=== PATIENT | male | born 1960 | race Caucasian/White ===

== ENCOUNTER 2019-06-15 04:55 | Inpatient (IN) ==
--- NOTE | 2019-05-22 15:15 | PAT Medication Instructions ---
Medication Instructions Date of Service May 22, 2019 Home Medications apple cider vinegar 2,000 mg PO BID STOP taking 2 weeks before surgery (or as soon as possible if surgery is within 2 weeks) apple cider vinegar 2,000 mg PO BID Other Notes If you have any questions please call us at [phone] or [phone] or [phone] or [phone]
--- NOTE | 2019-05-23 14:07 | Anesthesiology Consultation ---
Date of Service May 23, 2019 Assessment & Plan (1) Encounter for pre-operative examination: Chart Review Chart Review: Pending: Refer to Additional Notes / Consult section (pending preop testing (labs, EKG, CXR)) and Patient seen in Pre Admission Testing Teaching & Discussion Pre-Anesthesia Teaching/Discussion Notes: Instructed NPO after midnight before surgery,except medications with 15 cc of water. Medication instructions prov ided according to the PAT guidelines. History Surgery Operation Date: 06/15/19 13:00 Proposed Procedures p Right Anterior Total Hip Arthroplasty - Mil Martin DO Height/Weight Height: 5 ft 10 in Weight: 109.3 kg Allergies Allergy/AdvReac Type Severity Reaction Status Date / Time No Known Allergies Allergy Verified 05/16/19 14:58 Medications Home Medications Medication Instructions Recorded Confirmed Last Taken apple cider vinegar 2,000 mg PO BID 05/16/19 05/16/19 Unknown Past Medical History Medical History Obesity Arthritis Exercise / Class Metabolic Activity III < 4 Walking/Shop/Light housework Past Family History Family History Father Family hx of colon cancer Past Surgical History Surgical History History of arthroscopy RIGHT KNEE History of colonoscopy X 3 Past Anesthesia History No Hx of Anesthesia Complications and No Family Hx of Anesthesia Complications History of PONV No Hx of PONV and No Hx of Motion Sickness Social History Smoking Status: Never smoker Do You Dip or Chew Tobacco: Yes (occasional- advised NPO) Hx Alcohol Use: Yes Alcohol type: wine alcohol intake frequency: 0-2 drinks per day (1 glass wine/day) Hx Substance Use: No Review of Systems Patient denies chest pain, shortness of breath, dyspnea on exertion, reflux, cough, wheezing, palpitations. Physical Exam Vital Signs VITALS BP 151/77 (per patient, BP typically in the 120's/70-80's range) P 71 TEMP 98.4 SP02 96%RA RESP 18 PHYSICAL Full neck and c-spine range of motion. Full TMJ range of motion. TMD 3.5 finger breaths Mallampati Score 3 Dentition: missing sides/molars Lungs: clear throughout to auscultation Cardiac: regular rate and rhythm, no murmurs noted Spine: normal Carotid arteries: negative bruit Extremities: no edema
--- NOTE | 2019-05-23 15:23 | XRay Report ---
XR chest Pre-admission PA/Lat CLINICAL HISTORY: PAT preoperative evaluation COMPARISON STUDY: No previous studies for comparison. FINDINGS: Moderate cardiomegaly. Diaphragms are smooth. Lungs are considered clear. IMPRESSION: Moderate cardiomegaly. Otherwise negative study. The above report was generated using voice recognition software. It may contain grammatical, syntax or spelling errors. Electronically signed by: Cristóbal Bourgeois M.D. 05/23/2019 3:21 PM
[2019-05-23 15:29] LABS: Basophils # (auto) 0.03 K/uL (0-0.2); Basophils % (auto) 0.4 %; Eosinophils # (auto) 0.11 K/uL (0-0.5); Eosinophils % (auto) 1.3 %; Hematocrit (blood only) 42.4 % (42-52); Hemoglobin 14.7 g/dL (14.0-18.0); Immature Granulocytes # (auto) 0.25 K/uL (0.00-0.02); Lymphocytes # (auto) 1.02 K/uL (1.2-3.4); Lymphocytes % (auto) 12.2 %; Mean Corpuscular Hemoglobin 30.6 pg (25-34); Mean Corpuscular Hgb Conc 34.7 g/dL (32-36); Mean Corpuscular Volume 88.1 fL (80-100); Mean Platelet Volume 9.8 fL (7.4-10.4); Monocytes # (auto) 0.74 K/uL (0.11-0.59); Monocytes % (auto) 8.9 %; Neutrophils # (auto) 6.18 K/uL (1.4-6.5); Neutrophils % (auto) 74.2 %; Platelet Count 185 K/uL (130-400); RDW Coefficient of Variation 13.9 % (11.5-14.5); RDW Standard Deviation 44.3 fL (36.4-46.3); Red Blood Count 4.81 M/uL (4.7-6.1); White Blood Count 8.33 K/uL (4.8-10.8)
[2019-05-23 15:36] LABS: Est GFR (African American) 75.7; Est GFR (Non-African American) 65.3; Potassium 3.9 mmol/L (3.5-5.1)
[2019-05-23 15:41] LABS: Partial Thromboplastin Time 26.2 Seconds (21.0-31.0); Prothrombin Time 9.8 Seconds (9.0-12.0)
[2019-06-15] MEDS ORDERED: TRANEXAMIC ACID 1,000 MG **IV Pre-op IV SCH (06:00)
[2019-06-15] MEDS ORDERED: FAMOTIDINE 20 MG TAB PO SCH (06:00)
[2019-06-15] MEDS ORDERED: LR 500ML BOLUS IV SCH (06:00)
[2019-06-15] MEDS ORDERED: GABAPENTIN 600 MG DOSE PO SCH (06:00)
[2019-06-15] MEDS ORDERED: CEFAZOLIN 2000MG 2,000 MG/15 ML SYR IV SCH (06:00)
[2019-06-15] MEDS ORDERED: LACTATED RINGER'S 1,000 ML IV SCH (06:00)
[2019-06-15] MEDS ORDERED: ROPIVACAINE 0.5% HCL/PF 150 MG, BUPIVACAINE 0.5% MPF 30 ML, EPINEPHrine 30MG/30ML (OR U... INSTIL SCH (06:00)
[2019-06-15] MEDS ORDERED: ACETAMINOPHEN 500 MG TAB PO SCH (06:00)
[2019-06-15] MEDS ORDERED: BUPIVACAINE 0.5 % 5 MG/1 ML PF 10ML VIAL ONE (06:22)
--- NOTE | 2019-06-15 06:25 | History & Physical Report ---
Date of Service June 15, 2019 Assessment & Plan (1) Osteoarthritis of right hip: We will proceed with a right anterior total hip arthroplasty. Postoperatively he will be started on aspirin for DVT prophylaxis. He will be kept overnight in the hospital for postoperative medical management. He plans [facility] upon discharge. Present on Admission?: Yes History of Present Illness Chief Complaint: Primary osteoarthritis of the right hip Primary Care Provider: NO PCP Lei is a pleasant 58-year-old male who is been dealing with chronic increasing right hip and groin pain. X-rays and clinical examination have been diagnostic for primary osteoarthritis of the right hip. After failing conservative treatment, he has elected to proceed with a right anterior total hip arthroplasty. Allergies Allergy/AdvReac Type Severity Reaction Status Date / Time No Known Allergies Allergy Verified 06/15/19 05:46 Home Medications Home Medications Medication Instructions Recorded Confirmed Type apple cider vinegar 2,000 mg PO BID 05/16/19 06/15/19 History Past Med/Surg History Medical History Obesity Arthritis Surgical History History of arthroscopy RIGHT KNEE History of colonoscopy X 3 Family History Father Family hx of colon cancer Social History Preferred Language: Malay Communication Ability: Effective P D Driver Required: No Beliefs That Will Affect Care: None Current Living Situation: Spouse and Family Other Information That Helps Us Care for You: No Feels Safe at Home: Yes Safety Concerns: Feels Safe At This Time Smoking Status: Never smoker Do You Dip or Chew Tobacco: Yes (occasional- advised NPO) ; Second Hand Exposure: No ; Hx Alcohol Use: Yes Alcohol type: wine Hx Substance Use: No Review of Systems All systems reviewed & are unremarkable except as noted in HPI & below Physical Exam Constitutional: WD/WN, vitals as above Eyes: PERRL, conjunctivae normal, anicteric sclerae ENMT: external ear and nose normal, oropharynx normal Neck: trachea midline, no thyromegaly Respiratory: normal respiratory effort Cardiovascular: RRR, no murmur, no edema Gastrointestinal (Abdomen): normal bowel sounds, soft, nontender, no hepatosplenomegaly Musculoskeletal: Physical examination of the right hip reveals decreased range of motion with flexion, internal and external rotation. There is significant groin pain with forced internal rotation of the hip his leg lengths are essentially equal. Psychiatric: A+Ox3, euthymic affect Results & Data Vital Signs (Past 12 Hours) Vital Signs Temp Pulse Resp BP Pulse Ox 06/15/19 05:47 36.8 C 71 18 181/96 H 98 Diagnostic Findings Radiographs of the right hip and pelvis demonstrate advanced osteoarthritis with joint space narrowing osteophyte formation and [id number] articulation.
[2019-06-15] MEDS ORDERED: TRANEXAMIC ACID 1,000 MG **IV Intra-op IV SCH (06:30)
[2019-06-15] MEDS ORDERED: ONDANSETRON INJ 2 MG/ML 2 ML VIAL IV PRN ×2 (06:36→10:17)
[2019-06-15] MEDS ORDERED: ATROPINE SULFATE 0.1 MG/ML 10ML SYR IV PRN (06:36)
[2019-06-15] MEDS ORDERED: ePHEDrine sulfate 50 MG/ML AMP IV PRN (06:36)
[2019-06-15] MEDS ORDERED: fentaNYL citrate 100 MCG/2 ML VIAL IV PRN (06:36)
[2019-06-15] MEDS ORDERED: MIDAZOLAM HCL 1 MG/ML 2ML VIAL ONE ×2 (06:37)
[2019-06-15] MEDS ORDERED: fentaNYL citrate 100 MCG/2 ML VIAL ONE (06:38)
[2019-06-15] MEDS ORDERED: ORTHO JOINT ANESTHETIC ONE (06:44)
[2019-06-15] MEDS ORDERED: PROPOFOL IV EMULSION 10 MG/ML 20 ML VIAL IV ONE ×2 (07:29→10:27)
--- NOTE | 2019-06-15 08:23 | Operative Report ---
Post Operative Report Pre & Post Diagnosis Operation Date: 06/15/19 07:00 Pre-Op Diagnosis: Right Hip Degenerative Joint Disease Post-Op Diagnosis: Right Hip Degenerative Joint Disease Procedure Operation Date: 06/15/19 07:00 Actual Procedures p Right Anterior Total Hip Arthroplasty(Right) - Mil Martin DO Surgeon Mil Martin DO Ocular Care Technician Mil Newell PAC Estimated Blood Loss 300 Findings Consistent with Post-Op Diagnosis Specimens Right femoral head Complications none Disposition Disposition: Recovery Room Indications Lei is a pleasant 58-year-old male who presented my office with chronic increasing right hip and groin pain. X-rays and clinical examination were diagnostic for primary osteoarthritis of the right hip. After failing conservative treatment, he elected to proceed with a right anterior total hip arthroplasty. Description of Procedure Implants used Biomet Taperloc total hip arthroplasty system with a size 10 high offset Taperloc stem, a 56 mm G7 cup with a 25mm screw, an E1 polyethylene liner, a 40 mm ceramic head with a -6 neck. Patient arrived at the hospital for the above procedure. They were seen in the preoperative holding area and the operative extremity was identified and signed. They were given a spinal anesthetic. They were given a preoperative antibiotic and TXA. They were taken back To the operating room and laid on the table in the supine position. The leg was brought out through a Puristst leg positioner. The hip was then prepped and draped in sterile fashion. A timeout was done and the patient and the operative extremity was properly identified. An anterior approach was used. Dissection was taken down through the fascia and the tensor muscle belly was retracted laterally and the rectus was retracted medially. The circumflex vessels were identified and ligated. The capsule was then incised and tagged for later repair. The femoral neck was then cut and the femoral head was removed. The acetabulum was exposed. Time was spent doing a complete circumferential labral release. Sequential reaming of the acetabulum up to a size 55 reamer was done. Final reamings were done under fluoroscopy to ensure appropriate version. A Biomet 56 mm G7 cup was then impacted into place. A single 25 mm screw was placed. The E1 polyethylene liner was then snapped into place. Surrounding soft tissues were then injected with 100 cc of an orthopedic pain control cocktail. The proximal femur was then exposed. Sequential broaching up to a size 10 broach was done. Off that broach a size 40 head with a -6 neck was trialed. The hip was reduced and fluoroscopic images showed anatomic alignment of the implants in acceptable length. The broach was removed. The final size 10 high offset Taperloc stem was then impacted into place. A ceramic 40 mm head with a -6 neck was then impacted into place in the hip was reduced. Final fluoroscopic images showed anatomic reduction of the hip. The capsule was then closed with #1 Vicryl suture. A dilute betadyne lavage was then done for 3 minutes. The joint was then irrigated with normal saline solution. The fascia was closed with #1 PDS suture. Skin was closed with 2-0 Vicryl, subhash, and a Diane VAC dressing. The patient was then transferred to a hospital bed and taken to the post anesthesia care unit in stable condition. They tolerated the procedure well. I attest to the content of the Intraoperative Record and any orders documented therein. Any exceptions are noted below.
--- NOTE | 2019-06-15 08:48 | Fluoroscopy Report ---
INTRAOPERATIVE RADIOGRAPH CLINICAL HISTORY: Right hip arthroplasty. Fluoroscopy time: 23 seconds. FINDINGS: A single spot fluoroscopic view of the right hip is presented. A bipolar right hip arthropl asty is in near anatomic alignment. A single cortical lag screw transfixes the acetabular cup. There is no evidence of acute fracture on this fluoroscopic view. IMPRESSION: Intraoperative image from a right hip arthroplasty procedure as above. Electronically signed by: Casper Currie M.D. 06/15/2019 8:47 AM
--- NOTE | 2019-06-15 09:33 | XRay Report ---
XR hip 1V RT w pelvis CLINICAL HISTORY: 58 years-old Male presenting with IN PACU - A/P PELVIS and LATERAL HIP . TECHNIQUE: Frontal view of the pelvis and crosstable lateral view of the right hip were obtained. COMPARISON: 10/31/2018 and 11/27/2018. FINDINGS: There has been interval total right hip arthroplasty. No periprosthetic fracture or lucency. No malal ignment. Visualized portion of the pelvis is intact allowing for PASHTO positioning. Degenerative change s of the left hip. IMPRESSION: Expected postsurgical appearance status post total right hip arthroplasty. Electronically signed by: Jeffery Chávez M.D. 06/15/2019 9:32 AM
--- NOTE | 2019-06-15 10:06 | Anesthesiology Progress Note ---
Date of Service June 15, 2019 Anesthesia Post Procedure Vital Signs Vital Signs: Temp Pulse Pulse Resp BP Pulse Ox 06/15/19 09:50 56 L 16 118/77 99 06/15/19 09:40 36.5 C 56 L 16 126/85 99 06/15/19 09:30 58 L 16 117/72 96 06/15/19 09:20 57 L 18 117/68 96 06/15/19 09:10 62 18 129/71 95 06/15/19 09:00 56 L 16 115/70 94 06/15/19 08:54 36.1 C L 64 16 113/68 94 06/15/19 05:47 36.8 C 71 18 181/96 H 98 Pain Intensity Right Hip: Pain Intensity: 8 Transfer of Care Handoff Completed per policy Notes Mental Status: alert / awake / arousable and participated in evaluation Patient Amnestic to Procedure: Yes Nausea / Vomiting: adequately controlled Pain: adequately controlled Airway Patency, RR, SpO2: stable & adequate BP & HR: stable & adequate Hydration State: stable & adequate Neuraxial Anesthesia: was administered and sensory block is resolving Anesthetic Complications: no major complications apparent and Pt Satisfied with anesthetic care
[2019-06-15] MEDS ORDERED: SODIUM CHLORIDE 0.9% 1000ML 1,000 ML IV SCH (10:17)
[2019-06-15] MEDS ORDERED: HYDROmorphone INJ 0.5 MG/0.5 ML SYR IV PRN (10:17)
[2019-06-15] MEDS ORDERED: METOCLOPRAMIDE HCL INJ 5 MG/ML 2 ML VIAL IV PRN (10:17)
[2019-06-15] MEDS ORDERED: NALOXONE HCL 0.4 MG/1 ML VIAL/CARP IV PRN (10:17)
[2019-06-15] MEDS ORDERED: bisacodyL 10 MG SUPP PR PRN (10:17)
[2019-06-15] MEDS ORDERED: MAGNESIUM HYDROXIDE SUSP 30 ML UDC PO PRN (10:17)
[2019-06-15] MEDS: DOCUSATE SODIUM 100 MG CAP PO SCH ×2 (11:40→20:36)
[2019-06-15] MEDS: ASPIRIN 81 MG ECTAB PO SCH ×2 (11:40→20:36)
[2019-06-15] MEDS: MULTIVITAMIN TAB PO SCH (11:40)
[2019-06-15] MEDS: KETOROLAC 30 MG/ML VIAL IV SCH ×3 (11:41→23:16)
[2019-06-15] MEDS: OXYCODONE HCL IR 5 MG TAB (IMMEDIATE RELEASE) PO PRN ×2 (12:59→20:36)
[2019-06-15] MEDS: CEFAZOLIN 2000MG 2,000 MG/15 ML SYR IV SCH ×2 (13:35→21:38)
[2019-06-15] MEDS: ACETAMINOPHEN 500 MG TAB PO SCH ×2 (13:35→21:38)
[2019-06-15] MEDS ORDERED: SENNA 8.6 MG TAB PO SCH (21:00)
[2019-06-16] MEDS: ACETAMINOPHEN 500 MG TAB PO SCH (05:35)
[2019-06-16] MEDS: KETOROLAC 30 MG/ML VIAL IV SCH ×2 (05:36→11:41)
[2019-06-16 06:06] LABS: Basophils # (auto) 0.01 K/uL (0-0.2); Basophils % (auto) 0.1 %; Eosinophils # (auto) 0.12 K/uL (0-0.5); Eosinophils % (auto) 1.1 %; Hematocrit (blood only) 35.2 % (42-52); Hemoglobin 12.4 g/dL (14.0-18.0); Immature Granulocytes # (auto) 0.12 K/uL (0.00-0.02); Immature Granulocytes % (auto) 1.1 %; Lymphocytes # (auto) 1.31 K/uL (1.2-3.4); Lymphocytes % (auto) 12.4 %; Mean Corpuscular Hemoglobin 30.5 pg (25-34); Mean Corpuscular Hgb Conc 35.2 g/dL (32-36); Mean Corpuscular Volume 86.5 fL (80-100); Mean Platelet Volume 9.7 fL (7.4-10.4); Monocytes # (auto) 1.19 K/uL (0.11-0.59); Monocytes % (auto) 11.2 %; Neutrophils # (auto) 7.84 K/uL (1.4-6.5); Neutrophils % (auto) 74.1 %; Platelet Count 160 K/uL (130-400); RDW Coefficient of Variation 13.4 % (11.5-14.5); RDW Standard Deviation 42.7 fL (36.4-46.3); Red Blood Count 4.07 M/uL (4.7-6.1); White Blood Count 10.59 K/uL (4.8-10.8)
[2019-06-16 06:45] LABS: BUN Creatinine Ratio 18.2 (10-20); Calcium 8.5 mg/dl (8.5-10.1); Creatinine Clr Calc Pharmacy 100.2 ml/min; Est GFR (African American) 97.9; Est GFR (Non-African American) 84.5
--- NOTE | 2019-06-16 08:54 | Orthopedic Progress Note ---
Date of Service June 16, 2019 Assessment & Plan (1) Osteoarthritis of right hip: Overall is doing very well. Is not having much pain in the right hip. He is on aspirin for DVT prophylaxis. He will be seen by physical therapy this morning for ambulation and range of motion exercises. He can be discharged home later today with [facility]. He will follow-up with orthopedics in 2 weeks. Present on Admission?: Yes Subjective Lei was seen and examined at bedside this morning. Overall is doing very well. Is not having much pain in the right hip. He is Enrrique been up and ambulating. He has no complaints. Physical Exam Musculoskeletal: On physical examination of the right hip, the Diane VAC dressing is to suction. His leg lengths are equal. He has active dorsiflexion and plantarflexion of his right ankle. Sensation is intact throughout. Results & Data Vital Signs (Past 12 Hours) Vital Signs Temp Pulse Resp BP Pulse Ox 06/16/19 07:25 36.6 C 59 L 16 119/76 99 06/16/19 03:30 36.5 C 59 L 18 127/77 98 06/15/19 23:00 36.5 C 63 18 116/70 97 Laboratory Results H & H 05/23/19 06/16/19 Range/Units 14:47 05:30 Hgb 14.7 12.4 L (14.0-18.0) g/dL Hct 42.4 35.2 L (42-52) % Coagulation 05/23/19 Range/Units 14:47 INR 1.0 (0.9-1.1) Diagnostic Findings Postoperative x-rays of the right hip show the prosthesis to be in anatomic alignment without any evidence of fracture, dislocation, or loosening. PG Care Time/CCT Total # of Minutes Spent Total Time Spent with Patient: Total time spent is greater than 50% in coordination of care (as documented) at patient's floor/unit and/or counseling patient:
--- NOTE | 2019-06-16 08:55 | Discharge Summary ---
Date of Service June 16, 2019 Admission HPI Per Admitting Provider Lei is a pleasant 58-year-old male who is been dealing with chronic increasing right hip and groin pain. X-rays and clinical examination have been diagnostic for primary osteoarthritis of the right hip. After failing conservative treatment, he has elected to proceed with a right anterior total hip arthroplasty. Principal Diagnosis Right total hip arthroplasty Discharge Data Allergies Allergy/AdvReac Type Severity Reaction Status Date / Time No Known Allergies Allergy Verified 06/15/19 05:46 Consultations 06/16/19 08:00 Consult Case Management - Discharge Planning Routine Procedures Performed Operation Date: 06/15/19 07:00 Actual Procedures p Right Anterior Total Hip Arthroplasty(Right) - Mil Martin DO Ordered Studies 06/15/19 07:00 FL fluoroscopy <1hr Routine FL hip RT 1V Routine Hospital Course (1) Osteoarthritis of right hip: On June 15, 2019 dog arrived at [facility] and underwent a right total hip arthroplasty without complication. He had a spinal anesthetic. Postoperatively he was started on aspirin for DVT prophylaxis and discharged to general orthopedic floors. His hospital course was uneventful. On postop day #1 his H&H was stable and his pain was well controlled. He was able to participate well with physical therapy doing ambulation and range of motion exercises. He was then discharged home with [facility]. He will follow-up with orthopedics in 2 weeks. Total Time Total Time Spent Total Time Spent (In Minutes): 20 Discharge Plan Discharge Items Patient Disposition: Home - Home Health Services Reason For Visit: Right Hip Degenerative Joint Disease Discharge Diagnosis: Right total hip arthroplasty Activity: As commented below Non-emergency contact: Surgeon Call non-emergency contact if: your wound has increased redness and your wound has increased drainage Follow-up/Referrals: PCP,NO [Primary Care Provider] - Diet: Regular Addtl Attending Provider Instructions: Activity and Therapy Recommendations: * If you are using [facility] then therapy will be provided at your home until they feel you have accomplished all of your goals. * If you are using [facility] then Physical Therapy will be provided until they feel you are ready to start Outpatient Physical Therapy. * If you are not using home therapy then Outpatient Physical Therapy should start about 3-5 days from your day of surgery. Therapy will last about 6-10 weeks * You were shown a series of exercises in the hospital. Do these exercises three times each day including the exercises you were shown in physical therapy. * Get up and walk several times each day.~ For the first four weeks, try not to stand or walk for more than one hour at a time. If you do stand or walk for more than one hour, you will not hurt anything, but your leg will likely swell.~~ * As you feel comfortable, you may change from the walker or crutches to a cane and~then to independent walking. Medications: * Narcotic You will likely be sent home from the hospital with a prescription f or the narcotic pain medication that worked best throughout your stay. * Aspirin Most patients will be required to take Aspirin 81mg twice a day for 6 weeks after surgery. This is obtained [id number] and a prescription is not necessary. * Other medications may be prescribed for specific circumstances. If you have any questions, please call the office at . * Resume previous home medications unless otherwise instructed TEDs/Elastic Stockings: The white elastic stockings help limit swelling and prevent blood clots from forming in your legs. The more you wear them, the more they work. Wear them for six weeks. Dressing Care: You will likely have a purple VAC dressing after surgery. This dressing will k eep the incision dry and promote early healing. After about 7 days the batteries will wear out and the VAC will lose suction. Simply remove the dressing at that time and throw everything away, including the small suction machine. Then, you may leave the subhash open to air or cover them with a dry dressing so they do not rub on your pants. The subhash will be removed at your 2 week follow-up appointment. Showering: You may shower immediately with the purple VAC dressing. Let the shower spray hit your opposite side and slowly pat the plastic dry. Do not soak the dressing. After the dressing is removed you may shower normally with the subhash exposed. Let soapy water run over the subhash and pat them dry. Things To Watch For: * Drainage from the incision site that occurs more than one week after your surgery. * Increased redness at the incision site. * Fever above 102 degrees Fahrenheit. * Unusual chest pain or shortness of breath. * Call [facility] at with any of the above problems Follow-Up Visit: Follow-up with Dr. Martin 2-3 weeks after your day of surgery. An appointment was probably scheduled when you signed-up for surgery in the office. If you have any questions call Office Instructions: More detailed instructions as well as Frequently Asked Questions were provided in a folder by our office when you signed-up for surgery. Please review these instructions when you get home. If you have any further questions or concerns, please feel free to call the office at [phone] Pending Studies at Discharge: No Stand-Alone Forms: [facility] Medications and DC Order Prescriptions: New aspirin [Ecotrin Low Strength] 81 mg Tablet,Delayed Release (Dr/Ec) 81 mg PO BID Qty: 84 RF: 0 oxycodone 5 mg Tablet 5 mg PO Q4H PRN (Reason: pain) Qty: 30 RF: 0 Continued apple cider vinegar 500 mg Tablet 2,000 mg PO BID RF: 0 Discharge Orders: Discharge Order (Routine); Ordered 06/16/19 Ordered By: Mil Martin Admission Data Admit Date/Time: 06/15/19 08:53 Attending Provider: Mil Martin Admit Provider: Mil Martin Primary Care Provider: [facility]
[2019-06-16] MEDS: OXYCODONE HCL IR 5 MG TAB (IMMEDIATE RELEASE) PO PRN (08:59)
[2019-06-16] MEDS: ASPIRIN 81 MG ECTAB PO SCH (09:01)
[2019-06-16] MEDS: MULTIVITAMIN TAB PO SCH (09:01)
[2019-06-16] MEDS: DOCUSATE SODIUM 100 MG CAP PO SCH (09:01)
--- NOTE | 2019-06-16 09:32 | Anesthesiology Progress Note ---
Date of Service June 16, 2019 Anesthesia Post Procedure Vital Signs Vital Signs: Temp Pulse Pulse Resp BP Pulse Ox 06/16/19 07:25 36.6 C 59 L 16 119/76 99 06/16/19 03:30 36.5 C 59 L 18 127/77 98 06/15/19 23:00 36.5 C 63 18 116/70 97 06/15/19 20:04 36.7 C 67 16 140/71 96 06/15/19 15:51 36.5 C 55 L 16 149/79 H 95 06/15/19 12:56 36.4 C L 62 14 143/83 H 100 06/15/19 11:56 60 16 139/82 97 06/15/19 11:02 53 L 16 128/82 98 06/15/19 10:00 36.5 C 55 L 14 126/76 97 06/15/19 09:50 56 L 16 118/77 99 06/15/19 09:40 36.5 C 56 L 16 126/85 99 Pain Intensity Right Hip: Pain Intensity: 1 Notes Mental Status: alert / awake / arousable and participated in evaluation Patient Amnestic to Procedure: Yes Nausea / Vomiting: adequately controlled Pain: adequately controlled Airway Patency, RR, SpO2: stable & adequate BP & HR: stable & adequate Hydration State: stable & adequate Neuraxial Anesthesia: was administered and sensory block resolved Anesthetic Complications: no major complications apparent
== END 2019-06-16 12:07 | disposition home or self-care (01) | DRG 470 ==
LOC: ASU 04:55 → 3E 08:53
DX: M16.11 Unilateral primary osteoarthritis, right hip

== ENCOUNTER 2021-12-07 06:37 | Observation (INO) ==
--- NOTE | 2021-10-26 09:18 | PAT Medication Instructions ---
Medication Instructions Date of Service October 26, 2021 Home Medications apple cider vinegar 500 mg tablet 1,800 mg PO BID krill oil 500 mg capsule 500 mg PO QAM STOP taking 2 weeks before surgery apple cider vinegar 500 mg tablet 1,800 mg PO BID krill oil 500 mg capsule 500 mg PO QAM NOTHING TO EAT OR DRINK AFTER MIDNIGHT Other Notes If you have any questions please call us at [phone] or [phone] or [phone] or [phone]
--- NOTE | 2021-10-27 15:12 | Anesthesiology Consultation ---
Date of Service October 27, 2021 Assessment & Plan (1) Encounter for pre-operative examination: Chart Review Chart Review: Acceptable Risk for Surgery (pending cardio clearance and preop Covid testing results ) and Patient seen in Pre Admission Testing -Discussed with Dr. Thapa- patient will most likely need done under [facility] due to hypertrophic CM history. Also recommend patient get approval from cardio regarding upcoming left PARESH. 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 Bennett- due to cardiac history- patient is NOT acceptable Outpatient Joint Candidate. Surgeon's office informed Per PAT appt on 10/27/21, patient denies any recent travel or large group activities. No known Covid positive exposures or Covid related symptoms. No known Covid infection in the past 90 days. Pt is NOT vaccinated for Covide. Preop Covid testing scheduled 12/03/21= will await results. Educated on importance of self quarantining, social distancing and wearing mask in public for the patient one week prior to surgery and after Covid testing done Right anterior PARESH 06/15/19= done under [facility] at L4-L5 with 1 attempt. Teaching & Discussion Pre-Anesthesia Teaching/Discussion Notes: Instructed NPO after midnight before surgery,except medications with 15 cc of water. Medication instructions provided according to the PAT guidelines. History Surgery Operation Date: 12/07/21 08:40 Proposed Procedures p OP: Left Total Hip Arthroplasty Anterior - Mil Martin DO Height/Weight Height: 5 ft 9 in Weight: 85.8 kg Allergies Allergy/AdvReac Type Severity Reaction Status Date / Time No Known Allergies Allergy Verified 10/23/21 15:25 Medications Home Medications Medication Instructions Recorded Confirmed Last Taken apple cider vinegar 500 mg tablet 1,800 mg PO BID 05/16/19 10/23/21 2 Weeks Ago ~06/01/19 krill oil 500 mg capsule 500 mg PO QAM 09/02/21 10/23/21 Unknown Past Medical History Medical History Arthritis Hypertrophic cardiomyopathy Per pt found through genetic testing--takes no medications, has no symptoms--follows with Dr. Thompson @ [facility] [place] Per cardio records- MYBC3 variant Hypertrophic Cardiomyopathy without LVOTO. Only one high risk feature of VT but overall risk for SCD is not at the level that requires ICD. (Pt's son had a dissection and father had rare heart disease that prompted genetic testing) Exercise / Class Metabolic Activity II 4-5 Yardwork/Stairs/Walk up hill (one flight of stairs - no chest pain or SOB ) Past Family History Family History Father Family hx of colon cancer Other No family history of adverse response to anesthesia Past Surgical History Surgical History History of arthroscopy RIGHT KNEE History of colonoscopy X 3 History of total right hip arthroplasty (~06/2019) @ [facility] Past Anesthesia History No Hx of Anesthesia Complications and No Family Hx of Anesthesia Complications History of PONV No Hx of PONV and No Hx of Motion Sickness Social History Smoking Status: Never smoker Do You Dip or Chew Tobacco: No Hx Alcohol Use: Yes Alcohol type: wine alcohol intake frequency: a few times a week Hx Substance Use: No substance use type: does not use Review of Systems Hx of snoring- no recent issues - no witnessed apnea- no hx of sleep study. Patient denies chest pain, shortness of breath, dyspnea on exertion, reflux, cough, wheezing, palpitations. No hx of seizures, stroke, [place]. No hx of blood clots or blood transfusions Physical Exam Vital Signs VITALS BP 118/72 P 53 TEMP 97.7 SP02 99% RESP 16 Constitutional no acute distress ENMT Mouth: no TMJ clicking Thyromental Distance: > or= 3.5 Finger Breadths (3.5) Mallampati Class: II Missing molars Neck neck extension not limited Respiratory normal respiratory effort; no respiratory distress Auscultation: lungs clear to auscultation bilaterally; no wheezes Cardiovascular Rate/Rhythm: regular rate and regular rhythm Heart Sounds: no murmur Vessels: no carotid bruit Musculoskeletal Spine: + pain with cervical ROM (mild stiffness ) Extremities: extremities normal to inspection Psychiatric Orientation: alert Lab Results Anesthesia Preop Results Results Anesthesia Widget: WBC 6.47 K/uL (4.8-10.8) 10/27/21 Hgb 14.1 g/dL (14.0-18.0) 10/27/21 Hct 41.4 % (42-52) L 10/27/21 Plt 205 K/uL (130-400) 10/27/21 Na 141 mmol/L (136-145) 10/27/21 K 4.3 mmol/L (3.5-5.1) 10/27/21 Cl 105 mmol/L (98-107) 10/27/21 CO2 32 mmol/L (21-32) 10/27/21 BUN 18 mg/dl (6-23) 10/27/21 Creat 0.80 mg/dl (0.6-1.4) 10/27/21 Glucose Level 90 mg/dl (70-99(Fasting)) 10/27/21 PT 10.0 Seconds (9.0-12.0) 10/27/21 PTT 27.9 Seconds (21.0-31.0) 10/27/21 INR 1.0 (0.9-1.1) 10/27/21 Blood Type A Negative 10/27/21 Antibody Screen NEGATIVE 10/27/21 Testing Electrocardiogram Date: 10/27/21 Findings: + SB @ (46bpm) Low voltage QRS Chest X-Ray Date: 10/27/21 Findings: + NAD Echocardiogram Date: 02/28/20 EF: 60-64% LV Function: normal RWMA: + none Other Findings: + LVH (Mild/concentric) and + diastolic dysfunction (Grade 1) Valvular Disease: + no significant valvular disease RV cavity size is normal. RV systolic function is normal. Left atrium is mildly enlarged. Right atrium mildly enlarged. A small (<5mm) circumferential pericardial effusion is noted. Aortic root is mildly enlarged. Can consider cardiac MRI for more accurate assessment of septal thickness given history of monoallelic mutation of MYVPC1 gene. Stress Test Date: 09/12/20 Type: exercise (ECHO ) This is a symptom limited study for evaluation of LVOT obstruction and HCM. Induced ischemia evaluation was not performed. BP response to exercise was hypertensive. Exercise capacity is average. Hypertrophic cardiomyopathy stress echocardiogram shows no LVOT obstruction. Other Testing Holter monitor 07/31/21= Predominant underlying rhythm was Sinus Rhythm with average heart rate 62 beats per minute. Occasional Supraventricular Tachycardia runs occurred, the longest lasting 17 beats. The mechanism of the SVT appeared to be atrial tachycardia. Brief Idioventricular Rhythm was present. Rare PACs. Rare PVCs. Cardiac MRI 06/10/20= Interpretation Summary 1.Cardiac MRI findings of asymmetrical left ventricular hypertrophy maximal thickness of 15 mm.Atypical intermediate enhancement noted in septum segment(S) on late gadolinium enhanced imaging. Atypical right ventricular insertion site enhancement noted in anterior and inferior septum on late gadolinium enhanced imaging. Findings are suggestive of mild hypertrophic cardiomyopathy No evidence of cardiac amyloidosis(calculated ECV is 22 ). 2.The asymmetric hypertrophy involves the septum. The left ventricular cavity size is normal. The left ventricular systolic function is normal. The calculated LV ejection fraction is 55%. 3.The right ventricle is normal in size. The right ventricular systolic function is normal. The calculated RV ejection fraction is 62%.Ascending aorta: 36 mm (measured at bifurcation of the pulmonary artery). 4.There is no myocardial infarction noted on late gadolinium enhanced imaging. All the myocardial segments are viable. 5.A small (<5 mm) circumferential pericardial effusion is noted. 6.The aortic root is mildly dilated.
--- NOTE | 2021-12-03 14:52 | History & Physical Report ---
Date of Service December 03, 2021 Assessment & Plan (1) Osteoarthritis of left hip: We will proceed with a left anterior total of arthroplasty. Postoperatively he will be started on aspirin for DVT prophylaxis and kept overnight in the hospital for postoperative medical management. He plans to use energy physical therapy upon discharge. History of Present Illness Chief Complaint: Osteoarthritis of the left hip. Primary Care Provider: NO PCP Lei is a pleasant 61-year-old male who I did a right hip replacement on in June 2019. He has done well with that. Unfortunately he is really struggling with his left hip. X-rays and clinical examination have been diagnostic for advanced arthritis of the left hip. After failing conservative treatment, he has elected to proceed with a left total hip arthroplasty. Allergies Allergy/AdvReac Type Severity Reaction Status Date / Time No Known Allergies Allergy Verified 10/23/21 15:25 Home Medications Medication Instructions Recorded Confirmed Type apple cider vinegar 500 mg tablet 1,800 mg PO BID 05/16/19 10/23/21 History krill oil 500 mg capsule 500 mg PO QAM 09/02/21 10/23/21 History Past Med/Surg History Medical History Arthritis Hypertrophic cardiomyopathy Per pt found through genetic testing--takes no medications, has no s ymptoms--follows with Dr. Thompson @ [facility] Per cardio records- MYBC3 variant Hypertrophic Cardiomyopathy without LVOTO. Only one high risk feature of VT but overall risk for SCD is not at the level that requires ICD. 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 Physical Exam On physical examination of the left hip, he can flex about 80 degrees. He has - 10 degrees of internal rotation and 15 degrees of external rotation. He is extremely tight. All of his pain is located in his groin. Constitutional WD/WN, vitals as above Eyes PERRL, conjunctivae normal, anicteric sclerae ENMT external ear and nose normal, oropharynx normal Neck trachea midline, no thyromegaly Respiratory normal respiratory effort Cardiovascular RRR, no murmur, no edema Gastrointestinal (Abdomen) normal bowel sounds, soft, nontender, no hepatosplenomegaly Psychiatric A+Ox3, euthymic affect Results & Data Results & Data Laboratory Results . Diagnostic Findings X-rays of the left hip show advanced osteoarthritis with joint space narrowing, osteophyte formation, and [id number] articulation. PG Care Time/CCT Total # of Minutes Spent Total Time Spent with Patient: Total time spent is greater than 50% in coordination of care (as documented) at patient's floor/unit and/or counseling patient: Coding Level of Care Code None Diagnoses Osteoarthritis of left hip M16.12
[~2021-12-07 06:37] MED LIST: ACETAMINOPHEN 500 MG TAB PO SCH; FAMOTIDINE 20 MG TAB PO SCH; GABAPENTIN 300 MG CAP PO SCH; Ketorolac (*for OR use only*) 30 MG, dexAMETHasone 4 MG, KETAMINE HCL (**OR use only) 1... INFIL SCH; LR 15ML/HR IV SCH; LR 60ML/HR IV SCH; TRANEXAMIC ACID 1,000 MG **IV Intra-op IV SCH; TRANEXAMIC ACID 1,000 MG **IV Pre-op IV SCH; ceFAZolin 2000MG 2,000 MG/15 ML SYR IV SCH; dexAMETHasone 4 MG TAB PO SCH
[2021-12-07] MEDS ORDERED: BUPIVACAINE 0.5 % 5 MG/1 ML PF 10ML VIAL ONE (06:43)
[2021-12-07] MEDS ORDERED: ATROPINE SULFATE 0.1 MG/ML 10ML SYR IV PRN (07:28)
[2021-12-07] MEDS ORDERED: MEPERIDINE HCL 25 MG/ML CARP/VIAL IV PRN (07:28)
[2021-12-07] MEDS ORDERED: ONDANSETRON INJ 2 MG/ML 2 ML VIAL IV PRN ×2 (07:28→11:17)
[2021-12-07] MEDS ORDERED: HYDROmorphone INJ 1 MG/ML SYRINGE IV PRN (07:28)
[2021-12-07] MEDS ORDERED: ePHEDrine sulfate 50 MG/ML AMP IV PRN (07:28)
[2021-12-07] MEDS ORDERED: fentaNYL citrate 100 MCG/2 ML VIAL IV PRN (07:28)
[2021-12-07] MEDS ORDERED: PHENYLEPHRINE 100MCG/ML 5ML SYR IV PRN (07:28)
[2021-12-07] MEDS ORDERED: LABETALOL HCL IV 5 MG/ML 20ML IV PRN (07:28)
--- NOTE | 2021-12-07 08:13 | History & Physical Bridge Note ---
Date of Service December 07, 2021 History & Physical Bridge Note I have examined the patient, reviewed the History & Physical and in the interval since the performance of the History & Physical I have noted the following changes of clinical significance: no changes noted
[2021-12-07] MEDS ORDERED: LACTATED RINGER'S 1,000 ML IV SCH (08:15)
[2021-12-07] MEDS ORDERED: MIDAZOLAM HCL 1 MG/ML 2ML VIAL ONE (08:22)
[2021-12-07] MEDS ORDERED: fentaNYL citrate 100 MCG/2 ML VIAL ONE (08:23)
[2021-12-07] MEDS ORDERED: PROPOFOL IV EMULSION 10 MG/ML 100 ML VIAL IV ONE (08:36)
--- NOTE | 2021-12-07 10:06 | Operative Report ---
PG Post Operative Report Pre & Post Diagnosis Operation Date: 12/07/21 09:00 Pre-Op Diagnosis: Degenerative Joint Disease Left Hip Post-Op Diagnosis: Degenerative Joint Disease Left Hip I identified the patient and participated in the time-out.: Yes Procedure Operation Date: 12/07/21 09:00 Actual Procedures p Left Anterior Total Hip Arthroplasty, Uncemented(Left) - Mil Martin DO Surgeon iMl Martin, Manager [employer] Mil Newell PAC Estimated Blood Loss 300 Findings Consistent with Post-Op Diagnosis Specimens Left femoral head Complications none Disposition Disposition: Recovery Room Indications Lei is a pleasant 61-year-old male who is been dealing with chronic increasing left hip and groin pain. X-rays and clinical examination were diagnostic for advanced arthritis of left hip. After failing conservative treatment, he elected proceed with a left anterior total hip arthroplasty. Description of Procedure Implants used I used a [employer] total hip arthroplasty system with a size 2 high offset Avenir Complete stem, a 56mm G7 cup with a 25mm screw, an E1 polyethylene liner, a 40mm ceramic head with a +3.5 neck. Lei arrived at the hospital for the above procedure. He was seen in the preoperative holding area and the operative extremity was identified and signed. He was given a spinal anesthetic, a preoperative antibiotic, and TXA. He was then taken back to the operating room and laid on the table in the supine position. He was given basic sedation. The operative leg was secured to a Puristst leg positioner. The hip was then prepped and draped in sterile fashio n. A timeout was done and the patient and the operative extremity was properly identified. An anterior approach was used. Dissection was taken down through the fascia and the tensor muscle belly was retracted laterally and the rectus was retracted medially. The circumflex vessels were identified and ligated. The capsule was then incised and tagged for later repair. The femoral neck was then cut and the femoral head was removed. The acetabulum was exposed. Time was spent doing a complete circumferential labral release. Sequential reaming of the acetabulum up to a size 55 reamer was done. Final reamings were done under fluoroscopy to ensure appropriate version. A Biomet 56mm G7 cup was then impacted into place. A single 25 mm screw was placed. The E1 polyethylene liner was then snapped into place. Surrounding soft tissues were then injected with 100 cc of an orthopedic pain control cocktail. The proximal femur was then exposed. Sequential broaching up to a size 2 broach was done. Off that broach a size 40 head with a +3.5 neck was trialed. The hip was reduced and fluoroscopic images showed anatomic alignment of the implants in acceptable length. The broach was removed. The final size 2 high offset Avenir Complete stem was then impacted into place. A ceramic 40mm head with a +3.5 neck was then impacted onto the stem and the hip was reduced. Final fluoroscopic images showed anatomic alignment of the hip. The capsule was then closed with #1 Vicryl suture. A dilute betadyne lavage was then done for 3 minutes. The joint was then irrigated with normal saline solution. The fascia was closed with #1 PDS suture. Skin was closed with 2-0 Vicryl, subhash, and a Silverlon dressing. He was then transferred to a hospital bed and taken to the post anesthesia care unit in stable condition. He tolerated the procedure well. Mil Newell PA-C, was present for the entire procedure. He was critical for patient positioning, prepping, draping, retraction exposure, wound closure and application of sterile dressing. I attest to the content of the Intraoperative Record and any orders documented therein. Any exceptions are noted below.
--- NOTE | 2021-12-07 10:23 | Fluoroscopy Report ---
FL hip LT 1V CLINICAL HISTORY: Left total hip arthroplasty anterior TECHNIQUE: 2 views were obtained with the C-arm in the OR with the above procedure. Total fluoroscopy time was 22.2 seconds. Total skin dose was 2.44 mGy. Comparison: None available at the time of this dictation. FINDINGS/IMPRESSION: Intraoperative images were obtained of total left hip arthroplasty. Please correlate with intraoperative fluoroscopy and operative report. ACT 112: Negative or not required by law. Electronically signed by: Darnell Wilson M.D. 12/07/2021 10:22 AM
--- NOTE | 2021-12-07 10:57 | XRay Report ---
XR hip 1V LT w pelvis CLINICAL HISTORY: Postoperative evaluation. COMPARISON: Left hip radiographs September 02, 2021. FINDINGS: Alignment of the total left hip arthroplasty is anatomic. There is no periprosthetic fract ure or unexpected radiopaque foreign body. There are skin subhash. Right hip arthroplasty is noted. IMPRESSION: Expected findings following total left hip arthroplasty. ACT 112: Negative or not required by law. Electronically signed by: Mynor Danielle M.D. 12/07/2021 10:55 AM
--- NOTE | 2021-12-07 11:04 | Anesthesiology Progress Note ---
Date of Service December 07, 2021 Anesthesia Post Procedure Vital Signs Vital Signs: Temp Pulse Pulse Resp BP Pulse Ox 12/07/21 10:55 36.2 C L 43 L 15 112/66 99 12/07/21 10:45 51 L 15 113/68 99 12/07/21 10:35 49 L 13 109/59 L 99 12/07/21 10:26 36.5 C 48 L 13 104/65 100 12/07/21 07:12 36.9 C 56 L 18 142/78 H 99 Pain Intensity Left Hip: Pain Intensity: 2 Transfer of Care Handoff Completed per policy Notes Mental Status: alert / awake / arousable Patient Amnestic to Procedure: Yes Nausea / Vomiting: adequately controlled Pain: adequately controlled Airway Patency, RR, SpO2: stable & adequate BP & HR: stable & adequate Hydration State: stable & adequate Anesthetic Complications: no major complications apparent and Pt Satisfied with anesthetic care
[2021-12-07] MEDS ORDERED: METOCLOPRAMIDE HCL INJ 5 MG/ML 2 ML VIAL IV PRN (11:17)
[2021-12-07] MEDS ORDERED: HYDROmorphone INJ 0.5 MG/0.5 ML SYR IV PRN (11:17)
[2021-12-07] MEDS ORDERED: NALOXONE HCL 0.4 MG/1 ML VIAL/CARP IV PRN (11:17)
[2021-12-07] MEDS ORDERED: MAGNESIUM HYDROXIDE SUSP 30 ML UDC PO PRN (11:17)
[2021-12-07] MEDS ORDERED: bisacodyL 10 MG SUPP PR PRN (11:17)
[2021-12-07] MEDS ORDERED: oxyCODONE HCL IR 5 MG TAB (IMMEDIATE RELEASE) PO PRN (11:17)
[2021-12-07] MEDS: SODIUM CHLORIDE 0.9% 1000ML 1,000 ML IV SCH ×2 (11:33→20:59)
[2021-12-07] MEDS: KETOROLAC 30 MG/ML VIAL IV SCH ×3 (12:15→23:47)
[2021-12-07] MEDS: ACETAMINOPHEN 500 MG TAB PO SCH ×2 (13:11→20:52)
[2021-12-07] MEDS: ceFAZolin 2000MG 2,000 MG/15 ML SYR IV SCH ×2 (17:26→23:48)
[2021-12-07] MEDS: ASPIRIN 81 MG ECTAB PO SCH (20:51)
[2021-12-07] MEDS: DOCUSATE SODIUM 100 MG CAP PO SCH (20:52)
[2021-12-07] MEDS ORDERED: SENNA 8.6 MG TAB PO SCH (21:00)
[2021-12-08] MEDS: KETOROLAC 30 MG/ML VIAL IV SCH (04:49)
[2021-12-08] MEDS: ACETAMINOPHEN 500 MG TAB PO SCH (04:49)
--- NOTE | 2021-12-08 06:35 | Orthopedic Progress Note ---
Date of Service December 08, 2021 Assessment & Plan (1) Status post left hip replacement: Overall is doing fairly well. Is not having much pain in the left hip. He will be seen by physical therapy today for ambulation and range of motion exercises. He is on aspirin and KACIE hose stockings for DVT prophylaxis. He can be discharged home later today. He will follow-up with orthopedics in 2 weeks. Silvia Odom was seen and examined at bedside this morning. Overall is doing fairly well. Is having a little bit of back pain from sleeping in the bed last night. He has been up and ambulating on his left hip. He is doing well. He has no complaints. Review of Systems All systems reviewed & are unremarkable except as noted in HPI & below. Physical Exam On physical examination of the left hip, the dressing is clean and dry. His leg is out full extension. He is active dorsiflexion plantarflexion of his left ankle.. Results & Data Results & Data Laboratory Results . Diagnostic Findings Postoperative x-rays of the left hip show the prosthesis to be in anatomic alignment without any evidence of fracture, desiccation, or loosening. PG Care Time/CCT Total # of Minutes Spent Total Time Spent with Patient: Total time spent is greater than 50% in coordination of care (as documented) at patient's floor/unit and/or counseling patient: Coding Level of Care Code 67361 Post Operative Follow-Up Diagnoses Status post left hip replacement Z96.642
--- NOTE | 2021-12-08 06:37 | Discharge Summary ---
Date of Service December 08, 2021 Admission HPI (Per Admitting) Lei is a pleasant 61-year-old male who I did a right hip replacement on in June 2019. He has done well with that. Unfortunately he is really struggling with his left hip. X-rays and clinical examination have been diagnostic for advanced arthritis of the left hip. After failing conservative treatment, he has elected to proceed with a left total hip arthroplasty. Admission Exam (Per Admitting) On physical examination of the left hip, he can flex about 80 degrees. He has - 10 degrees of internal rotation and 15 degrees of external rotation. He is extremely tight. All of his pain is located in his groin. Principal Diagnosis Same as "Discharge Diagnosis" noted below under Discharge Instructions. Discharge Exam On physical examination of the left hip, the dressing is clean and dry. His leg is out full extension. He is active dorsiflexion plantarflexion of his left ankle.. Discharge Data Procedures Performed Operation Date: 12/07/21 09:00 Actual Procedures p Left Anterior Total Hip Arthroplasty, Uncemented(Left) - Mil Martin DO Ordered Studies 12/07/21 [place] hip LT 1V Routine Hospital Course (1) Status post left hip replacement: On December 07, 2021 Lei arrived at [facility] and underwent a left anterior hip replacement without complication. He had a spinal anesthetic. Postoperatively he was started on aspirin for DVT prophylaxis and transferred to the general orthopedic floors. His hospital course was uneventful. On postop day #1 his vital signs were stable and his pain was well controlled. He was able to work well with physical therapy doing ambulation and range of motion exercises. He was then discharged home. He will follow-up with orthopedics in 2 weeks. PG Care Time/CCT Total # of Minutes Spent Total Time Spent with Patient: Total time spent is greater than 50% in coordination of care (as documented) at patient's floor/unit and/or counseling patient: Discharge Plan Discharge Items Patient Disposition: Home - Home Health Services Reason For Visit: Degenerative Joint Disease Left Hip Discharge Diagnosis: Left hip replacement Activity: Per Instructions section Call non-emergency contact if: your wound has increased redness and your wound h as increased drainage Follow-up/Referrals: [facility] [Outside] PCP,NO [Primary Care Provider] - Diet: Regular Addtl Attending Provider Instructions: Activity and Therapy Recommendations: * If you are using [facility] then therapy will be provided at your home until they feel you have accomplished all of your goals. * If you are using [facility] then Physical Therapy will be provided until they feel you are ready to start Outpatient Physical Therapy. * If you are not using home therapy then Outpatient Physical Therapy should start about 3-5 days from your day of surgery. Therapy will last about 6-10 weeks * You were shown a series of exercises in the hospital. Do these exercises three times each day including the exercises you were shown in physical therapy. * Get up and walk several times each day.~ For the first four weeks, try not to stand or walk for more than one hour at a time. If you do stand or walk for more than one hour, you will not hurt anything, but your leg will likely swell.~~ * As you feel comfortable, you may change from the walker or crutches to a cane and~then to independent walking. Medications: * Narcotic You will likely be sent home from the hospital with a prescription for the narcotic pain medication that worked best throughout your stay. * Aspirin Most patients will be required to take Aspirin 81mg twice a day for 6 weeks after surgery. This is obtained [id number] and a prescription is not necessary. * Other medications may be prescribed for specific circumstances. If you have any questions, please call the office at . * Resume previous home medications unless otherwise instructed TEDs/Elastic Stockings: The white elastic stockings help limit swelling and prevent blood clots from forming in your legs. The more you wear them, the more they work. Wear them for six weeks. Dressing Care: Leave the Silverlon dressing in place for 7 days. After 7 days you may remove the dressing. If the incision is not draining then you may leave the subhash open to air. If there is a little bit of drainage or if the subhash are getting stuck on your clothing then cover the incision with a dry dressing. The subhash will be removed at your 2 week follow-up appointment. Showering: You may shower with the Silverlon dressing in place. Do not let the shower spray hit the dressing directly. Pat the Silverlon dressing dry. If the dressing becomes wet underneath, then simply remove the dressing. Keep the incision dry until you are 7 days out from the day of surgery. After 7 days you may remove the Silverlon dressing and shower with the subhash exposed. Let soapy water run over the subhash and pat them dry. Do not scrub or soak the incision. Things To Watch For: * Drainage from the incision site that occurs more than one week after your surgery. * Increased redness at the incision site. * Fever above 102 degrees Fahrenheit. * Unusual chest pain or shortness of breath. * Call [facility] at with any of the above problems Follow-Up Visit: Follow-up with Dr. Martin's PA (Mil Newell) 2-3 weeks after your day of surgery. He will remove your subhash and answer any questions. If you have any additional questions or concerns, Dr Martin is usually in the office at the same time and will be available An appointment was probably scheduled when you signed-up for surgery in the office. If you have any questions call Office Instructions: More detailed instructions as well as Frequently Asked Questions were provided in a folder by our office when you signed-up for surgery. Please review these instructions when you get home. If you have any further questions or concerns, please feel free to call the office at [phone] Pending Studies at Discharge: No Stand-Alone Forms: My [facility], Smoking Cessation Medications and DC Order Prescriptions: New oxycodone-acetaminophen 5-325 mg tablet 1 tab PO Q6H PRN (Reason: pain) Qty: 30 RF: 0 aspirin 81 mg Tablet,Delayed Release (Dr/Ec) 81 mg PO BID 42 Days Qty: 0 RF: 0 Continued krill oil 500 mg capsule 500 mg PO QAM RF: 0 apple cider vinegar 500 mg Tablet 1,800 mg PO BID RF: 0 Discharge Orders: Discharge Order (Routine); Ordered 12/08/21 Ordered By: Mil Martin Admission Data Admit Date/Time: 12/07/21 10:26 Attending Provider: Mil Martin Admit Provider: Mil Martin Primary Care Provider: PCP,NO
[2021-12-08] MEDS ORDERED: dexAMETHasone 4 MG TAB PO SCH (08:00)
[2021-12-08] MEDS: DOCUSATE SODIUM 100 MG CAP PO SCH (08:48)
[2021-12-08] MEDS: ASPIRIN 81 MG ECTAB PO SCH (08:48)
[2021-12-08] MEDS ORDERED: MULTIVITAMIN TAB PO SCH (09:00)
== END 2021-12-08 11:43 | disposition home health service (06) ==
LOC: ASU 06:37 → 3E 06:37